=== PATIENT | male | born 2000 | race African-American/Black ===

== ENCOUNTER 2022-10-06 18:02 | Inpatient (IN) | payer OTHER ==
[~2022-10-06] VITALS: Ht 185.4 cm; Wt 89.0 kg
[2022-10-06] MEDS ORDERED: ACETAMINOPHEN 500 MG TAB PO ONE (18:15)
[2022-10-06 18:31] LABS: Basophils # (auto) 0 10 ^3/uL (0-0.2); Basophils % (auto) 0.6 % (0.0-2.0); Eosinophils # (auto) 0 10 ^3/uL (0-0.8); Hemoglobin 14.4 g/dL (13.5-17.5); Lymphocytes # (auto) 0.5 10 ^3/uL (0.4-5.4); Lymphocytes % (auto) 6.6 % (10.0-50.0); Mean Corpuscular Hemoglobin 29.6 pg (28.0-32.0); Mean Corpuscular Hgb Conc. 34.2 g/dL (32.0-36.0); Mean Corpuscular Volume 86.5 fL (80.0-100.0); Monocytes # (auto) 0.8 10 ^3/uL (0-1.3); Monocytes % (auto) 11.8 % (0.0-12.0); Neutrophils # (auto) 5.7 10 ^3/uL (1.6-8.6); Red Blood Cells 4.85 10^6/uL (4.5-5.90)
[2022-10-06 18:49] LABS: Albumin 4.1 g/dL (3.4-5.0); Calcium 9.3 mg/dL (8.5-10.1); Potassium 4.2 mmol/L (3.5-5.1)
[2022-10-06 18:51] LABS: BUN/Creatinine Ratio 10.2 (10.0-20.0)
[2022-10-06 18:53] LABS: Bilirubin, Total 1.2 mg/dL (0.2-1.0); Total Protein 7.8 g/dL (6.4-8.2)
[2022-10-06] MEDS ORDERED: cefTRIAXone 1GM/50ML D5W 50 ML IV SCH (19:00)
[2022-10-06] MEDS ORDERED: LACTATED RINGER'S 2,700 ML IV ONE (19:00)
[2022-10-06] MEDS ORDERED: IBUPROFEN 600 MG TAB PO ONE (20:45)
[2022-10-07] MEDS ORDERED: ACETAMINOPHEN 325 MG TAB PO ONE (02:30)
[2022-10-07] MEDS ORDERED: IBUPROFEN 600 MG TAB PO ONE (03:30)
[2022-10-07] MEDS ORDERED: VANCOMYCIN 1GM/250ML 250 ML IV ONE (04:15)
[2022-10-07] MEDS ORDERED: DexAMETHasone SOD PHOS 10MG/1ML VIAL INJ IV ONE (04:15)
[2022-10-07] MEDS ORDERED: IOHEXOL 350 MG/ML 100ML IJ ONE (06:11)
[2022-10-07 06:35] LABS: Urine Bacteria NONE SEEN /hpf (None Seen); Urine Blood Negative /uL (Negative); Urine Specific Gravity 1.003 (1.001-1.035); Urine WBC <1 /hpf (0 - 3)
[2022-10-07] MEDS ORDERED: ACETAMINOPHEN 325 MG TAB PO PRN (09:00)
[2022-10-07] MEDS ORDERED: VANCOMYCIN PER PHARMACY 0 MG IV SCH (09:00)
[2022-10-07] MEDS: SODIUM CHLORIDE 0.9% 1,000 ML IV SCH ×2 (10:42→19:00)
[2022-10-07] MEDS: cefTRIAXone 1GM/50ML D5W 50 ML IV SCH (10:42)
[2022-10-07] MEDS: VANCOMYCIN 1GM/250ML 250 ML IV SCH ×2 (13:46→21:12)
[2022-10-07 17:00] VITALS: BP 117/78
[2022-10-07] MEDS: TAMSULOSIN HYDROCHLORIDE 0.4 MG CAP PO SCH (18:03)
[2022-10-07 22:00] VITALS: BP 107/58
[2022-10-08 05:00] VITALS: BP 96/45
[2022-10-08] MEDS: VANCOMYCIN 1GM/250ML 250 ML IV SCH ×3 (06:13→22:55)
[2022-10-08] MEDS: SODIUM CHLORIDE 0.9% 1,000 ML IV SCH ×2 (06:14→14:10)
[2022-10-08 07:00] LABS: Basophils # (auto) 0 10 ^3/uL (0-0.2); Basophils % (auto) 1.1 % (0.0-2.0); Eosinophils # (auto) 0 10 ^3/uL (0-0.8); Eosinophils % (auto) 0.2 % (0.0-7.0); Hematocrit 37.6 % (41.0-53.0); Hemoglobin 13.6 g/dL (13.5-17.5); Lymphocytes # (auto) 1.3 10 ^3/uL (0.4-5.4); Lymphocytes % (auto) 35.1 % (10.0-50.0); Mean Corpuscular Hemoglobin 29.7 pg (28.0-32.0); Mean Corpuscular Volume 82.3 fL (80.0-100.0); Monocytes # (auto) 0.5 10 ^3/uL (0-1.3); Monocytes % (auto) 13.5 % (0.0-12.0); Neutrophils # (auto) 1.9 10 ^3/uL (1.6-8.6); Neutrophils % (auto) 50.1 % (37.0-80.0); Nucleated Red Blood Cells % 0.4 %; Red Blood Cells 4.57 10^6/uL (4.5-5.90); Red Cell Distribution Width 13.8 % (11.8-14.3); White Blood Cell 3.8 10^3/uL (4.4-10.8)
[2022-10-08 07:13] LABS: Potassium 3.3 mmol/L (3.5-5.1)
[2022-10-08 07:26] LABS: Albumin 3.5 g/dL (3.4-5.0); BUN/Creatinine Ratio 12.3 (10.0-20.0); Bilirubin, Total 1.2 mg/dL (0.2-1.0); Calcium 8.7 mg/dL (8.5-10.1); Magnesium 2.2 mg/dL (1.6-2.6); Total Protein 7.2 g/dL (6.4-8.2)
[2022-10-08 09:00] VITALS: BP 109/47
[2022-10-08] MEDS ORDERED: POTASSIUM CHL 20 Meq TABLET PO ONE (11:00)
[2022-10-08] MEDS: cefTRIAXone 1GM/50ML D5W 50 ML IV SCH (11:24)
[2022-10-08 12:56] VITALS: BP 122/56
[2022-10-08] MEDS ORDERED: ERGOCALCIFEROL 50,000 UNIT(1.25MG) CAP PO SCH (13:15)
[2022-10-08 16:52] VITALS: BP 119/67
[2022-10-08] MEDS: TAMSULOSIN HYDROCHLORIDE 0.4 MG CAP PO SCH (17:51)
[2022-10-09] MEDS: SODIUM CHLORIDE 0.9% 1,000 ML IV SCH ×2 (02:26→12:09)
[2022-10-09 05:00] VITALS: BP_SYST 107; BP_SYST 111; BP_DIAS 59; BP_DIAS 68
[2022-10-09] MEDS: VANCOMYCIN 1GM/250ML 250 ML IV SCH ×2 (05:59→13:46)
[2022-10-09] MEDS: cefTRIAXone 1GM/50ML D5W 50 ML IV SCH (09:13)
[2022-10-09 13:00] VITALS: BP 97/52
[2022-10-09 16:13] VITALS: BP 101/55
[2022-10-09 17:00] VITALS: BP 101/55
[2022-10-09] MEDS: TAMSULOSIN HYDROCHLORIDE 0.4 MG CAP PO SCH (18:00)
== END 2022-10-09 18:22 | disposition home or self-care (01) | DRG 552 ==
LOC: ER 18:02 → OVERFLOW 10-07 08:57 → WEST WING 10-07 13:55
PROVIDERS: ADMIT Nurse Practitioner Family; ATTEND Internal Medicine
DX: M54.50 Low back pain, unspecified (principal); R65.10 Systemic inflammatory response syndrome (SIRS) of non-infectious origin without acute organ dysfunction; N13.30 Unspecified hydronephrosis; E55.9 Vitamin D deficiency, unspecified; B34.9 Viral infection, unspecified; Z20.822 Contact with and (suspected) exposure to COVID-19
CPT/HCPCS: 36415; 71045; 72129; 72132; 72148; 76775; 80053; 80202; 81001; 82306; 82553; 83605; 83735; 84443; 85025; 85652; 86141; 87040; 87086; 87426; 87804; 93306; 96365; 96366; 96367; 96376; G0378; J0696; J1100

== ENCOUNTER 2023-04-21 10:19 | Inpatient (IN) | payer OTHER ==
[~2023-04-21] VITALS: Ht 188 cm; Wt 99.2 kg
[2023-04-21] MEDS ORDERED: ASPirin 325 MG TAB PO ONE (10:30)
[2023-04-21 11:06] LABS: Basophils # (auto) 0.1 10 ^3/uL (0-0.2); Basophils % (auto) 1.1 % (0.0-2.0); Eosinophils # (auto) 0 10 ^3/uL (0-0.8); Eosinophils % (auto) 0.4 % (0.0-7.0); Hematocrit 46.1 % (41.0-53.0); Hemoglobin 15.7 g/dL (13.5-17.5); Lymphocytes # (auto) 2.8 10 ^3/uL (0.4-5.4); Lymphocytes % (auto) 48.3 % (10.0-50.0); Mean Corpuscular Hemoglobin 29.4 pg (28.0-32.0); Mean Corpuscular Volume 86.7 fL (80.0-100.0); Monocytes # (auto) 0.4 10 ^3/uL (0-1.3); Monocytes % (auto) 7.5 % (0.0-12.0); Neutrophils # (auto) 2.5 10 ^3/uL (1.6-8.6); Neutrophils % (auto) 42.7 % (37.0-80.0); Nucleated Red Blood Cells % 0.3 %; Red Blood Cells 5.32 10^6/uL (4.5-5.90); Red Cell Distribution Width 13.7 % (11.8-14.3); White Blood Cell 5.9 10^3/uL (4.4-10.8)
[2023-04-21 11:12] LABS: Alanine Aminotransferase 55 U/L (7-40); Albumin 4.9 g/dL (3.2-4.8); Alkaline Phosphatase 65 U/L (46-116); Anion Gap 6 (5-15); Aspartate Aminotransferase 31 U/L (13-40); BUN/Creatinine Ratio 11.4 (10.0-20.0); Bilirubin, Total 1.7 mg/dL (0.2-1.0); Blood Urea Nitrogen 13 mg/dL (9-23); Calcium 9.9 mg/dL (8.5-10.1); Carbon Dioxide 26 mmol/L (20-30); Chloride 104 mmol/L (98-107); Glucose 92 mg/dL (74-106); Sodium 136 mmol/L (136-145)
[2023-04-21 11:14] LABS: INR 1.09 (0.9-1.15); Partial Thromboplastin Time 33.5 SEC (24.5-34.5); Prothrombin Time 11.4 sec (9.3-11.8)
[2023-04-21 11:26] LABS: Urine Bacteria NONE SEEN /hpf (None Seen); Urine Blood Negative /uL (Negative); Urine Clarity Clear (Clear); Urine Color Yellow (Yellow); Urine Protein, UAD Negative (Negative); Urine Specific Gravity 1.023 (1.001-1.035); Urine Urobilinogen Normal (Negative); Urine WBC <1 /hpf (0 - 3); Urine pH 5.5 (5.0-8.0)
[2023-04-21 12:34] VITALS: PULSE 61; RESP 18; O2SAT 98
[2023-04-21] MEDS ORDERED: LORazepam 0.5 MG TAB PO PRN (15:15)
[2023-04-21] MEDS ORDERED: ONDANSETRON HCL 4 MG/2 ML VIAL IV PRN (15:15)
[2023-04-21] MEDS ORDERED: NITROGLYCERIN 0.4 MG SL TAB SL PRN (15:15)
[2023-04-21] MEDS ORDERED: ACETAMINOPHEN 325 MG TAB PO PRN (15:15)
[2023-04-21] MEDS ORDERED: DOCUSATE SOD 100 MG CAP PO PRN (15:15)
[2023-04-21] MEDS ORDERED: MORPHINE SULFATE INJ 2 MG/ml SYRG IV PRN ×2 (15:15)
[2023-04-21] MEDS ORDERED: OMNIPAQUE 12mg/ml 500ml ORAL SOLUTION PO ONE (15:44)
[2023-04-21 15:56] LABS: Triglycerides 80 mg/dL (< 150)
[2023-04-21 15:57] LABS: Amphetamine Screen, Urine Neg (NEGATIVE); Benzodiazephine Screen, Urine Neg (NEGATIVE)
[2023-04-21 15:57] LABS: LDL Cholesterol 74 mg/dL (< 100)
[2023-04-21 15:58] LABS: Barbiturate Scree,Urine Neg (NEGATIVE); Cannabinoid Screen, Urine Neg (NEGATIVE); Cocaine Screen, Urine Neg (NEGATIVE); Opiate Scree,Urine Neg (NEGATIVE); Phencyclidine Screen, Urine Neg (NEGATIVE)
[2023-04-21 15:58] LABS: Cholesterol 141 mg/dL (< 200); HDL Cholesterol 48 mg/dL (40-59)
[2023-04-21] MEDS: SODIUM CHLORIDE 0.9% 1,000 ML IV SCH (16:47)
[2023-04-21] MEDS: HYDROcodone-ACET 5/325MG TAB PO PRN (20:08)
[2023-04-21 21:16] VITALS: PULSE 59; RESP 18; O2SAT 99
[2023-04-21] MEDS: SODIUM CHLOR 0.9% PF (SALINE LOCK) 10ML VIAL/SYR IV SCH (21:52)
[2023-04-21 22:00] VITALS: BP 112/71; PULSE 59; RESP 18; TEMP 98.4; O2SAT 99
[2023-04-22] MEDS: SODIUM CHLOR 0.9% PF (SALINE LOCK) 10ML VIAL/SYR IV SCH ×2 (06:00→14:20)
[2023-04-22] MEDS: SODIUM CHLORIDE 0.9% 1,000 ML IV SCH (07:55)
[2023-04-22 08:00] VITALS: BP 108/58; PULSE 61; PULSE 85; RESP 20; TEMP 97.9; O2SAT 100; O2SAT 98
[2023-04-22] MEDS ORDERED: ENOXAPARIN SOD 40 MG/0.4 ML SYRINGE SC SCH (10:00)
[2023-04-22 11:20] LABS: Alanine Aminotransferase 39 U/L (7-40); Alkaline Phosphatase 57 U/L (46-116); Anion Gap 4 (5-15); Aspartate Aminotransferase 21 U/L (13-40); BUN/Creatinine Ratio 6.7 (10.0-20.0); Bilirubin, Total 1.6 mg/dL (0.2-1.0); Blood Urea Nitrogen 8 mg/dL (9-23); CRP High Sensitivity 0.07 mg/dL (<1.0); Calcium 8.7 mg/dL (8.5-10.1); Carbon Dioxide 28 mmol/L (20-30); Chloride 106 mmol/L (98-107); Glucose 81 mg/dL (74-106); Potassium 4.5 mmol/L (3.5-5.1); Sodium 138 mmol/L (136-145); Total Protein 6.7 g/dL (5.7-8.2)
[2023-04-22 12:00] VITALS: BP 110/68; PULSE 69; RESP 20; TEMP 98.1; O2SAT 99
[2023-04-22 14:49] LABS: Basophils # (auto) 0.1 10 ^3/uL (0-0.2); Basophils % (auto) 1.3 % (0.0-2.0); Eosinophils # (auto) 0.1 10 ^3/uL (0-0.8); Eosinophils % (auto) 1.9 % (0.0-7.0); Hematocrit 44.8 % (41.0-53.0); Hemoglobin 14.9 g/dL (13.5-17.5); Lymphocytes # (auto) 2.7 10 ^3/uL (0.4-5.4); Lymphocytes % (auto) 52.8 % (10.0-50.0); Mean Corpuscular Hemoglobin 29.5 pg (28.0-32.0); Mean Corpuscular Hgb Conc. 33.3 g/dL (32.0-36.0); Mean Corpuscular Volume 88.4 fL (80.0-100.0); Monocytes # (auto) 0.4 10 ^3/uL (0-1.3); Monocytes % (auto) 7.3 % (0.0-12.0); Neutrophils # (auto) 1.9 10 ^3/uL (1.6-8.6); Neutrophils % (auto) 36.7 % (37.0-80.0); Nucleated Red Blood Cells % 0.1 %; Red Blood Cells 5.07 10^6/uL (4.5-5.90); Red Cell Distribution Width 13.6 % (11.8-14.3); White Blood Cell 5.2 10^3/uL (4.4-10.8)
[2023-04-22] MEDS: HYDROcodone-ACET 5/325MG TAB PO PRN (15:14)
[2023-04-22 16:20] VITALS: BP 120/67; PULSE 73; RESP 21; TEMP 98; O2SAT 96
[2023-04-22 16:22] LABS: Magnesium 1.9 mg/dL (1.6-2.6)
[2023-04-22 17:12] VITALS: TEMP 36.7
== END 2023-04-22 17:30 | disposition home or self-care (01) | DRG 552 ==
LOC: ER 10:19 → OVERFLOW 15:07 → WEST WING 21:16
PROVIDERS: ADMIT Internal Medicine Geriatric Medicine; ATTEND Internal Medicine Geriatric Medicine
DX: M54.40 Lumbago with sciatica, unspecified side (principal); R74.01 Elevation of levels of liver transaminase levels; I10 Essential (primary) hypertension
CPT/HCPCS: 36415; 71045; 72148; 74177; 76700; 80053; 80061; 80307; 81001; 82306; 82607; 83036; 83735; 84443; 84484; 85025; 85610; 85730; 86141; 87040; 87086; 87088; 87186; 93005; 99291; G0378